=== PATIENT | female | born 1990 | race Caucasian/White ===

== ENCOUNTER 2022-12-19 20:24 | Inpatient (IN) | payer MEDICAID ==
[~2022-12-19] VITALS: Ht 162.6 cm; Wt 82.1 kg
[2022-12-19] MEDS ORDERED: IOHEXOL-350 100 ML BOTTLE ONE (22:22)
[2022-12-19 22:32] LABS: CHLORIDE 101 mEq/L (98-107)
[2022-12-19 22:40] LABS: INR 0.9; PARTIAL THROMBOPLASTIN TIME 32.9 sec (23.4-31.0); PROTHROMBIN TIME 10.1 sec (9.6-11.0)
[2022-12-19 22:43] LABS: HCG SCREEN NEGATIVE
[2022-12-19 22:49] LABS: ETHANOL BLOOD < 10 mg/dL
[2022-12-20 00:08] LABS: BASOPHILS % 0.4 % (0.0-2.0); EOSINOPHILS % 3.5 % (0.0-5.0); HEMOGLOBIN. 12.6 g/dL (12.0-16.0); LYMPHOCYTES % 35.6 % (20.0-50.0); MEAN CORPUSCULAR HEMOGLOBIN 32.2 pg (28.0-32.0); MEAN CORPUSCULAR VOLUME 91.8 fL (81.0-99.0); MEAN PLATELET VOLUME 8.3 fl (7.4-10.4); MONOCYTES % 4.8 % (2.0-8.0); NEUTROPHILS % 55.7 % (40.0-76.0); PLATELET 317 x1000/uL (130-400); RED BLOOD CELL COUNT 3.92 mill/uL (4.2-5.4); RED CELL DISTRIBUTION WIDTH 12.7 % (11.6-14.6)
[2022-12-20 01:20] LABS: CLARITY URINE CLEAR (CLEAR); COLOR URINE YELLOW (YELLOW); KETONES URINE NEGATIVE (NEGATIVE); LEUKOCYTE ESTERASE URINE NEGATIVE (NEGATIVE); NITRITE URINE NEGATIVE (NEGATIVE); OCCULT BLOOD URINE 2+ (NEGATIVE); PH URINE 6.5 (4.5-8.0); PROTEIN URINE NEGATIVE (NEGATIVE); SPECIFIC GRAVITY URINE 1.015 (1.005-1.030); UROBILINOGEN URINE 0.2 E.U./dL (0.2-1.0)
[2022-12-20 01:50] LABS: *AMPHETAMINES SCREEN URINE NEGATIVE (NEGATIVE); *BARBITURATES SCREEN URINE NEGATIVE (NEGATIVE); *BENZODIAZEPINES SCREEN URINE NEGATIVE (NEGATIVE); *COCAINE SCREEN URINE NEGATIVE (NEGATIVE); CANNABINOID URINE SCREEN NEGATIVE (NEGATIVE); METHADONE URINE SCREEN NEGATIVE (NEGATIVE); OPIATES URINE SCREEN NEGATIVE (NEGATIVE); PHENCYCLIDINE URINE SCREEN NEGATIVE (NEGATIVE)
[2022-12-20] MEDS ORDERED: LORAZEPAM 0.5MG TABLET PO PRN (08:45)
[2022-12-20] MEDS ORDERED: ZOLPIDEM TARTRATE 5MG TABLET PO PRN (08:45)
[2022-12-20] MEDS ORDERED: ONDANSETRON HCL 4MG/2ML INJ IV PRN (08:45)
[2022-12-20] MEDS ORDERED: CLONIDINE 0.1MG TABLET PO PRN (08:45)
[2022-12-20] MEDS ORDERED: ACETAMINOPHEN 325MG TABLET PO PRN ×2 (08:45)
[2022-12-20 09:00] VITALS: BP 116/59
[2022-12-20] MEDS ORDERED: QUETIAPINE FUMARATE 25MG TABLET PO SCH (09:00)
[2022-12-20] MEDS ORDERED: CITALOPRAM HYDROBROMIDE 10MG TABLET PO SCH (09:00)
[2022-12-20 09:30] VITALS: BP 116/59
[2022-12-20] MEDS: ENOXAPARIN 40MG/0.4ML SYR SUBCUT SCH (10:32)
[2022-12-20] MEDS ORDERED: BENZ1TAB78 MT (11:26)
[2022-12-20] MEDS ORDERED: CITA40TA69 MT (11:26)
[2022-12-20] MEDS ORDERED: QUET100T34 MT (11:26)
[2022-12-20 12:00] VITALS: BP 116/59
[2022-12-20] MEDS: IPRATROPIUM/ALBUTEROL 0.5-3(2.5)MG/3ML NEB HHN SCH ×2 (12:23→16:15)
[2022-12-20] MEDS: BENZTROPINE MESYLATE 1MG TABLET PO SCH (13:18)
[2022-12-20 16:00] VITALS: BP 117/68
[2022-12-20 20:35] VITALS: BP 128/66
[2022-12-20] MEDS ORDERED: BENZTROPINE MESYLATE 1MG TABLET PO SCH (21:00)
[2022-12-20] MEDS: QUETIAPINE FUMARATE 200MG TABLET PO SCH (22:17)
[2022-12-21 00:28] VITALS: BP 119/62
[2022-12-21 04:00] VITALS: BP 98/50
[2022-12-21 08:00] VITALS: BP 102/54
[2022-12-21] MEDS: CITALOPRAM HYDROBROMIDE 10MG TABLET PO SCH (08:55)
[2022-12-21] MEDS: BENZTROPINE MESYLATE 1MG TABLET PO SCH (08:55)
[2022-12-21] MEDS: ENOXAPARIN 40MG/0.4ML SYR SUBCUT SCH (08:56)
[2022-12-21 12:00] VITALS: BP 131/87
[2022-12-21 16:00] VITALS: BP 129/69
[2022-12-21 20:00] VITALS: BP 132/65
[2022-12-21] MEDS: QUETIAPINE FUMARATE 200MG TABLET PO SCH (21:50)
[2022-12-22] VITALS: BP 126/62
[2022-12-22 04:00] VITALS: BP 106/62
[2022-12-22 08:00] VITALS: BP 98/56
[2022-12-22] MEDS: BENZTROPINE MESYLATE 1MG TABLET PO SCH (08:40)
[2022-12-22] MEDS: CITALOPRAM HYDROBROMIDE 10MG TABLET PO SCH (08:40)
[2022-12-22] MEDS: ENOXAPARIN 40MG/0.4ML SYR SUBCUT SCH (08:41)
[2022-12-22 11:25] VITALS: BP 106/65
[2022-12-22 12:00] VITALS: BP 111/64
== END 2022-12-22 12:47 | disposition home or self-care (01) | DRG 48 ==
LOC: ER 20:24 → 7WST 12-20 05:05 → EDBEDREQ 12-20 05:18 → 7WST 12-20 08:31 → UNDODISIN 12-20 11:05
PROVIDERS: ADMIT Internal Medicine; ATTEND Internal Medicine
DX: G90.8 Other disorders of autonomic nervous system (principal); S09.90XA Unspecified injury of head, initial encounter; E87.1 Hypo-osmolality and hyponatremia; F33.1 Major depressive disorder, recurrent, moderate; F20.9 Schizophrenia, unspecified; Z79.899 Other long term (current) drug therapy; W18.30XA Fall on same level, unspecified, initial encounter; Y93.89 Activity, other specified; Y92.89 Other specified places as the place of occurrence of the external cause; Y99.8 Other external cause status
CPT/HCPCS: 36415; 70496; 70498; 70551; 71045; 72128; 72131; 72141; 72146; 72148; 80053; 80305; 80307; 80320; 80329; 81003; 82962; 84443; 84484; 84703; 85025; 93005; 94640; 97162; 97166; 99291; J1650; L0172; Q9967; A4315; G0480